=== PATIENT | female | born 2000 | race Hispanic/Latino ===

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

== ENCOUNTER 2021-08-14 17:52 | Emergency (ER) | payer OTHER ==
--- OUTSIDE RECORDS SUMMARY | 2021-08-14 17:56 | XMS REPORT | Continuity of Care Document ---
:2000 Author Organization [facility] t Address [address] [place] [address] Care Team Providers Name Role Phone Naomi Coleman Primary Care Physician [phone] Yohan BOLDEN N Attending Clinician Araceli Coleman Attending Clinician Payers Payer Name Policy Type Policy Number Effective Date Expiration Date S ource Problems Condition Condition Condition Status Onset Resolution Last Treating Co mments Source Name Details Category Date Date Treatment Clinician Date Anemia, Anemia, Disease Active 2020-07 Univers 0-03 it y of 00:00: [address] Branch Disease Active 2020-07 U nivers hemorrhage hemorrhage 0-02 it y of 00:00: [address] Branch Obstetrica Obstetrica Disease Active 2020-07 U nivers l l 0-02 ity [place] [address] [place] [address] Branch Rubella Rubella Disease Active Overview: Univ ers non-immune non-immune 3-01 Formattin ity of status, status, 00:00: g of this [place] antepartum antepartum 00 note Me dical might be Branch different from the original. Address pp BMI BMI Disease Active 2018-07 Univers 31.0-31.9, 31.0-31.9, 0-29 it y of adult adult 00:00: [address] Branch Allergies, Adverse Reactions, Alerts This patient has no known allergies or adverse reactions. Social History Social Habit Start Date Stop Date Quantity Comments Source History SDOH University o f Alcohol Comment [place] [facility] Branch History SDCO University o f Alcohol Std [place] [facility] Drinks Branch History [facility] University o f Alcohol Binge [place] [facility] al Branch Exposure to Not sure University of SARS-CoV-2 [place] [facility] (event) Branch Alcohol intake 2021-06-05 2021-06-05 Lifetime University of 00:00:00 00:00:00 non-drinker [facility] (finding) Branch Tobacco use and 2019-05-12 2019-05-12 Never used Universit y of exposure 00:00:00 00:00:00 [place] [facility] History SDOH 2019-05-12 2019-05-12 1 University o f Alcohol Frequency 00:00:00 00:00:00 [facility] edical Gatzke Sex Assigned At 2000 2001 Universit y of 00:00:00 00:00:00 [facility] Smoking Status Start Date Stop Date Source Never smoker [facility] Medications Ordered Filled Start Stop Current Ordering Indication Dosage Frequency Signature Comments Components Source Medication Medication Date Date Medication? Clinician (SIG) Name Name doxycycline 2020-07- Yes [id number] 100mg Take 1 Univers hyclate 100 08-06 capsule by i ty of mg capsule 00:00: 05:59 mouth 2 Pritesh as 00 :00 (two) Medical times Branch daily for 7 days. norelgestro 2020-07 Yes [id number] 1{patch Apply 1 Univers min-ethinyl 1-22 } Patch to ity of estradiol 00:00: [facility] ([facility] 00 weekly. Medical 150-35 Branch mcg/24 hr patch norelgestro 2020-07 Yes [id number] 1{patch Apply 1 Univers min-ethinyl 1-22 } Patch to ity of estradiol 00:00: skin [place] ([facility] 00 weekly. Medical 150-35 Branch mcg/24 hr patch norelgestro 2020-07 Yes [id number] 1{patch Apply 1 Univers min-ethinyl 1-22 } Patch to ity of estradiol 00:00: skin [place] [facility] 00 weekly. Medical 150-35 Branch mcg/24 hr patch norelgestro 2020-07 Yes [id number] 1{patch Apply 1 Univers min-ethinyl 1-22 } Patch to ity of estradiol 00:00: skin [place] ([facility] 00 weekly. Medical 150-35 Branch mcg/24 hr patch norelgestro 2020- Yes [id number] 1{patch Apply 1 Univers min-ethinyl 1-22 } Patch to ity of estradiol 00:00: skin [place] ([facility] 00 weekly. Medical 150-35 Branch mcg/24 hr patch norelgestro 2020- Yes [id number] 1{patch Apply 1 Univers min-ethinyl 1-22 } Patch to ity of estradiol 00:00: skin [place] ([facility] 00 weekly. Medical 150-35 Branch mcg/24 hr patch norelgestro 2020-07 Yes [id number] 1{patch Apply 1 Univers min-ethinyl 1-22 } Patch to ity of estradiol 00:00: skin [place] ([facility] 00 weekly. Medical 150-35 Branch mcg/24 hr patch Iron Fum & 2020-07 Yes [id number] 1{capsu Take 1 Univers P-FA-Vit B 0-03 le} capsule by ity of & C No.9 00:00: mouth [place] (INTEGRA 00 daily. Medical PLUS) 125 Branch mg iron- 1 mg Cap Iron Fum & 2020-07 Yes [id number] 1{capsu Take 1 Univers P-FA-Vit B 0-03 le} capsule by ity of & C No.9 00:00: mouth [place] (INTEGRA 00 daily. Medical PLUS) 125 Branch mg iron- 1 mg Cap Iron Fum & 2020-07 Yes [id number] 1{capsu Take 1 Univers P-FA-Vit B 0-03 le} capsule by ity of & C No.9 00:00: mouth [place] (INTEGRA 00 daily. Medical PLUS) 125 Branch mg iron- 1 mg Cap Iron Fum & 2020-07 Yes [id number] 1{capsu Take 1 Univers P-FA-Vit B 0-03 le} capsule by ity of & C No.9 00:00: mouth [place] (INTEGRA 00 daily. Medical PLUS) 125 Branch mg iron- 1 mg Cap Iron Fum & 2020-07 Yes [id number] 1{capsu Take 1 Univers P-FA-Vit B 0-03 le} capsule by ity of & C No.9 00:00: mouth [place] (INTEGRA 00 daily. Medical PLUS) 125 Branch mg iron- 1 mg Cap Iron Fum & 2020-07 Yes [id number] 1{capsu Take 1 Univers P-FA-Vit B 0-03 le} capsule by ity of & C No.9 00:00: mouth [place] (INTEGRA 00 daily. Medical PLUS) 125 Branch mg iron- 1 mg Cap Iron Fum & 2020-07 Yes [id number] 1{capsu Take 1 Univers P-FA-Vit B 0-03 le} capsule by ity of & C No.9 00:00: mouth [place] (INTEGRA daily. Medical PLUS) 125 Branch mg iron- 1 mg Cap ibuprofen 2020-07- No [id number] 600mg Take 1 Univers 600 mg 0-03 11-22 tablet by ity of tablet 00:00: 00:00 mouth [place] 00 :00 every 6 Medical (six) Branch hours as needed (Pain). Take with food or milk. PNV 67-iron Yes [id number] 1{each} Take 1 Univers ps-folate 5-21 Each by ity of no.1-dha 00:00: mouth [place] (VITAFOL 00 daily. Medical ULTRA) 29 Branch mg iron- 1 mg-200 mg Cap PNV 67-iron Yes [id number] 1{each} Take 1 Univers ps-folate 5-21 Each by ity of no.1-dha 00:00: mouth [place] (VITAFOL 00 daily. Medical ULTRA) 29 Branch mg iron- 1 mg-200 mg Cap PNV 67-iron 0 Yes [id number] 1{each} Take 1 Univers ps-folate 5-21 Each by ity of no.1-dha 00:00: mouth [place] (VITAFOL 00 daily. Medical ULTRA) 29 Branch mg iron- 1 mg-200 mg Cap PNV 67-iron 0 Yes [id number] 1{each} Take 1 Univers ps-folate 5-21 Each by ity of no.1-dha 00:00: mouth [place] (VITAFOL 00 daily. Medical ULTRA) 29 Branch mg iron- 1 mg-200 mg Cap PNV 67-iron 2020-0 Yes [id number] 1{each} Take 1 Univers ps-folate 5-21 Each by ity of no.1-dha 00:00: mouth [place] (VITAFOL 00 daily. Medical ULTRA) 29 Branch mg iron- 1 mg-200 mg Cap PNV 67-iron 2020-0 Yes [id number] 1{each} Take 1 Univers ps-folate 5-21 Each by ity of no.1-dha 00:00: mouth [place] (VITAFOL 00 daily. Medical ULTRA) 29 Branch mg iron- 1 mg-200 mg Cap PNV 67-iron 0 Yes [id number] 1{each} Take 1 Univers ps-folate 5-21 Each by ity of no.1-dha 00:00: mouth [place] (VITAFOL 00 daily. Medical ULTRA) 29 Branch mg iron- 1 mg-200 mg Cap Immunizations Ordered Immunization Filled Immunization Date Status Commen ts Source Name Name [facility] 2021-02-15 Completed University of 00:00:00 [facility] TDAP 2021-02-15 Completed University of 00:00:00 [facility] TDAP 2021-02-15 Completed University of 00:00:00 [facility] TDAP 2021-02-15 Completed University of 00:00:00 [facility] TDAP 2021-02-15 Completed University of 00:00:00 [facility] TDAP 2021-02-15 Completed University of 00:00:00 [facility] TDAP 2021-02-15 Completed University of 00:00:00 [facility] Influenza Virus 2019-05-12 Completed Universit y of Vaccine Quad .5 mL 00:00:00 [facility] 6+ MO Branch Influenza Virus 2019-05-12 Completed Universit y of Vaccine Quad .5 mL 00:00:00 [facility] IM 6+ MO Branch Influenza Virus 2019-05-12 Completed Universit y of Vaccine Quad .5 mL 00:00:00 [place] [facility] IM 6+ MO Branch Influenza Virus 2019-05-12 Completed Universit y of Vaccine Quad .5 mL 00:00:00 [place] [facility] IM 6+ MO Branch Influenza Virus 2019-05-12 Completed Universit y of Vaccine Quad .5 mL 00:00:00 [place] [facility] IM 6+ MO Branch Influenza Virus 2019-05-12 Completed Universit y of Vaccine Quad .5 mL 00:00:00 [place] [facility] IM 6+ MO Branch Influenza Virus 2019-05-12 Completed Universit y of Vaccine Quad .5 mL 00:00:00 [facility] 6+ MO Branch Meningococcal 2019-02-18 Completed University of Vaccine 00:00:00 [facility] Meningococcal 2019-02-18 Completed University of Vaccine 00:00:00 [facility] Meningococcal 2019-02-18 Completed University of Vaccine 00:00:00 [facility] Meningococcal 2019-02-18 Completed University of Vaccine 00:00:00 [facility] Meningococcal 2019-02-18 Completed University of Vaccine 00:00:00 [facility] Meningococcal 2019-02-18 Completed University of Vaccine 00:00:00 [facility] Meningococcal 2019-02-18 Completed University of Vaccine 00:00:00 [facility] Meningococcal 2018-01-06 Completed University of Vaccine 00:00:00 [facility] Meningococcal 2018-01-06 Completed University of Vaccine 00:00:00 [facility] Meningococcal 2018-01-06 Completed University of Vaccine 00:00:00 [facility] Meningococcal 2018-01-06 Completed University of Vaccine 00:00:00 [facility] Meningococcal 2018-01-06 Completed University of Vaccine 00:00:00 [facility] Meningococcal 2018-01-06 Completed University of Vaccine 00:00:00 [facility] Meningococcal 2018-01-06 Completed University of Vaccine 00:00:00 [facility] HPV 2014-10-28 Completed University of 00:00:00 [facility] HPV 2014-10-28 Completed University of 00:00:00 [facility] HPV 2014-10-28 Completed University of 00:00:00 [facility] Branch HPV 2014-10-28 Completed University of 00:00:00 [facility] Branch HPV 2014-10-28 Completed University of 00:00:00 [facility] Branch HPV 2014-10-28 Completed University of 00:00:00 [facility] Branch HPV 2014-10-28 Completed University of 00:00:00 [facility] HPV 2014-03-06 Completed University of 00:00:00 [facility] Branch HPV 2014-03-06 Completed University of 00:00:00 [facility] Branch HPV 2014-03-06 Completed University of 00:00:00 [facility] Branch HPV 2014-03-06 Completed University of 00:00:00 [facility] Branch HPV 2014-03-06 Completed University of 00:00:00 [facility] Branch HPV 2014-03-06 Completed University of 00:00:00 [facility] Branch HPV 2014-03-06 Completed University of 00:00:00 [facility] Varicella 2010-02-24 Completed University of (varivax)(chicken 00:00:00 [place] [facility] pox) Branch Varicella 2010-02-24 Completed University of (varivax)(chicken 00:00:00 [place] [facility] pox) Branch Varicella 2010-02-24 Completed University of (varivax)(chicken 00:00:00 [place] [facility] pox) Branch Varicella 2010-02-24 Completed University of (varivax)(chicken 00:00:00 [place] [facility] pox) Branch Varicella 2010-02-24 Completed University of (varivax)(chicken 00:00:00 [place] [facility] pox) Branch Varicella 2010-02-24 Completed University of (varivax)(chicken 00:00:00 [place] [facility] pox) Branch Varicella 2010-02-24 Completed University of (varivax)(chicken 00:00:00 [place] [facility] pox) Branch HEPATITIS A 2006-11-06 Completed University of 00:00:00 [facility] HEPATITIS A 2006-11-06 Completed University of 00:00:00 [facility] HEPATITIS A 2006-11-06 Completed University of 00:00:00 [facility] HEPATITIS A 2006-11-06 Completed University of 00:00:00 [facility] HEPATITIS A 2006-11-06 Completed University of 00:00:00 [facility] HEPATITIS A 2006-11-06 Completed University of 00:00:00 [facility] HEPATITIS A 2006-11-06 Completed University of 00:00:00 [facility] HEPATITIS A 2006-03-13 Completed University of 00:00:00 [facility] HEPATITIS A 2006-03-13 Completed University of 00:00:00 [facility] HEPATITIS A 2006-03-13 Completed University of 00:00:00 [facility] HEPATITIS A 2006-03-13 Completed University of 00:00:00 [facility] HEPATITIS A 2006-03-13 Completed University of 00:00:00 [facility] HEPATITIS A 2006-03-13 Completed University of 00:00:00 [facility] HEPATITIS A 2006-03-13 Completed University of 00:00:00 [facility] DTAP 2006-01-18 Completed University of 00:00:00 [facility] MMR 2006-01-18 Completed University of 00:00:00 [facility] Polio (IPV/OPV) 2006-01-18 Completed Universit y of 00:00:00 [facility] Pneumococcal 7 2006-01-18 Completed University of Conjugate, PCV7 00:00:00 [place] [facility] (Prevnar7) Branch DTAP 2006-01-18 Completed University of 00:00:00 [facility] MMR 2006-01-18 Completed University of 00:00:00 [facility] Polio (IPV/OPV) 2006-01-18 Completed Universit y of 00:00:00 [facility] Pneumococcal 7 2006-01-18 Completed University of Conjugate, PCV7 00:00:00 [place] [facility] ical (Prevnar7) Branch DTAP 2006-01-18 Completed University of 00:00:00 [facility] MMR 2006-01-18 Completed University of 00:00:00 [facility] Polio (IPV/OPV) 2006-01-18 Completed Universit y of 00:00:00 [facility] Pneumococcal 7 2006-01-18 Completed University of Conjugate, PCV7 00:00:00 [place] [facility] ical (Prevnar7) Branch DTAP 2006-01-18 Completed University of 00:00:00 [facility] MMR 2006-01-18 Completed University of 00:00:00 [facility] Polio (IPV/OPV) 2006-01-18 Completed Universit y of 00:00:00 [facility] Pneumococcal 7 2006-01-18 Completed University of Conjugate, PCV7 00:00:00 [place] [facility] ical (Prevnar7) Branch DTAP 2006-01-18 Completed University of 00:00:00 [facility] MMR 2006-01-18 Completed University of 00:00:00 [facility] Polio (IPV/OPV) 2006-01-18 Completed Universit y of 00:00:00 [facility] Pneumococcal 7 2006-01-18 Completed University of Conjugate, PCV7 00:00:00 [place] [facility] ical (Prevnar7) Branch DTAP 2006-01-18 Completed University of 00:00:00 [facility] MMR 2006-01-18 Completed University of 00:00:00 [facility] Polio (IPV/OPV) 2006-01-18 Completed Universit y of 00:00:00 [facility] Pneumococcal 7 2006-01-18 Completed University of Conjugate, PCV7 00:00:00 [place] [facility] ical (Prevnar7) Branch DTAP 2006-01-18 Completed University of 00:00:00 [facility] MMR 2006-01-18 Completed University of 00:00:00 [facility] Polio (IPV/OPV) 2006-01-18 Completed Universit y of 00:00:00 [facility] Branch Pneumococcal 7 2006-01-18 Completed University of Conjugate, PCV7 00:00:00 [place] [facility] (Prevnar7) Branch Varicella 2003-05-27 Completed University of (varivax)(chicken 00:00:00 [place] [facility] pox) Branch Pneumococcal 7 2003-05-27 Completed University of Conjugate, PCV7 00:00:00 [place] [facility] (Prevnar7) Branch Varicella 2003-05-27 Completed University of (varivax)(chicken 00:00:00 [place] [facility] pox) Branch Pneumococcal 7 2003-05-27 Completed University of Conjugate, PCV7 00:00:00 [place] [facility] (Prevnar7) Branch Varicella 2003-05-27 Completed University of (varivax)(chicken 00:00:00 [place] [facility] pox) Branch Pneumococcal 7 2003-05-27 Completed University of Conjugate, PCV7 00:00:00 [place] [facility] (Prevnar7) Branch Varicella 2003-05-27 Completed University of (varivax)(chicken 00:00:00 [place] [facility] pox) Branch Pneumococcal 7 2003-05-27 Completed University of Conjugate, PCV7 00:00:00 [place] [facility] (Prevnar7) Branch Varicella 2003-05-27 Completed University of (varivax)(chicken 00:00:00 [place] [facility] pox) Branch Pneumococcal 7 2003-05-27 Completed University of Conjugate, PCV7 00:00:00 [place] [facility] (Prevnar7) Branch Varicella 2003-05-27 Completed University of (varivax)(chicken 00:00:00 [place] [facility] pox) Branch Pneumococcal 7 2003-05-27 Completed University of Conjugate, PCV7 00:00:00 [place] [facility] (Prevnar7) Branch Varicella 2003-05-27 Completed University of (varivax)(chicken 00:00:00 [place] [facility] pox) Branch Pneumococcal 7 2003-05-27 Completed University of Conjugate, PCV7 00:00:00 [place] [facility] (Prevnar7) Branch DTAP 2002-12-25 Completed University of 00:00:00 [facility] HIB 3 Dose Schedule 2002-12-25 Completed Unive rsity of 00:00:00 [facility] MMR 2002-12-25 Completed University of 00:00:00 [facility] Pneumococcal 7 2002-12-25 Completed University of Conjugate, PCV7 00:00:00 [place] [facility] (Prevnar7) Branch DTAP 2002-12-25 Completed University of 00:00:00 [facility] HIB 3 Dose Schedule 2002-12-25 Completed Unive rsity of 00:00:00 [facility] MMR 2002-12-25 Completed University of 00:00:00 [facility] Pneumococcal 7 2002-12-25 Completed University of Conjugate, PCV7 00:00:00 [place] [facility] (Prevnar7) Branch DTAP 2002-12-25 Completed University of 00:00:00 [facility] HIB 3 Dose Schedule 2002-12-25 Completed Unive rsity of 00:00:00 [facility] MMR 2002-12-25 Completed University of 00:00:00 [facility] Pneumococcal 7 2002-12-25 Completed University of Conjugate, PCV7 00:00:00 [place] [facility] (Prevnar7) Branch DTAP 2002-12-25 Completed University of 00:00:00 [facility] HIB 3 Dose Schedule 2002-12-25 Completed Unive rsity of 00:00:00 [facility] MMR 2002-12-25 Completed University of 00:00:00 [facility] Pneumococcal 7 2002-12-25 Completed University of Conjugate, PCV7 00:00:00 [place] [facility] ical (Prevnar7) Branch DTAP 2002-12-25 Completed University of 00:00:00 [facility] HIB 3 Dose Schedule 2002-12-25 Completed Unive rsity of 00:00:00 [facility] MMR 2002-12-25 Completed University of 00:00:00 [facility] Pneumococcal 7 2002-12-25 Completed University of Conjugate, PCV7 00:00:00 [place] [facility] (Prevnar7) Branch DTAP 2002-12-25 Completed University of 00:00:00 [facility] HIB 3 Dose Schedule 2002-12-25 Completed Unive rsity of 00:00:00 [facility] MMR 2002-12-25 Completed University of 00:00:00 [facility] Pneumococcal 7 2002-12-25 Completed University of Conjugate, PCV7 00:00:00 [place] [facility] (Prevnar7) Branch DTAP 2002-12-25 Completed University of 00:00:00 [facility] HIB 3 Dose Schedule 2002-12-25 Completed Unive rsity of 00:00:00 [facility] MMR 2002-12-25 Completed University of 00:00:00 [facility] Pneumococcal 7 2002-12-25 Completed University of Conjugate, PCV7 00:00:00 [facility] ical (Prevnar7) Branch Hep B, Adol or Pedi 2001 Completed Unive rsity of Dosage 00:00:00 [facility] Branch Hep B, Adol or Pedi 2001 Completed Unive rsity of Dosage 00:00:00 [facility] Hep B, Adol or Pedi 2001 Completed Unive rsity of Dosage 00:00:00 [facility] Hep B, Adol or Pedi 2001 Completed Unive rsity of Dosage 00:00:00 [facility] Hep B, Adol or Pedi 2001 Completed Unive rsity of Dosage 00:00:00 [facility] Hep B, Adol or Pedi 2001 Completed Unive rsity of Dosage 00:00:00 [facility] Hep B, Adol or Pedi 2001 Completed Unive rsity of Dosage 00:00:00 [facility] Vital Signs Vital Name Observation Time Observation Value Comments Source Systolic blood 2021-06-05 19:11:00 122 mm[Hg] Univer sity of pressure [facility] Diastolic blood 2021-06-05 19:11:00 72 mm[Hg] Unive rsity of pressure [facility] Heart rate 2021-06-05 19:11:00 102 /min [facility] Body temperature 2021-06-05 19:11:00 36.67 Amy [facility] Respiratory rate 2021-06-05 19:11:00 16 /min Univ [facility] Body height 2021-06-05 19:11:00 157.5 cm [facility] Body weight 2021-06-05 19:11:00 87.998 kg [facility] BMI 2021-06-05 19:11:00 35.48 kg/m2 [facility] Body mass index 2021-06-05 19:11:00 97.41 % Unive rsity of (BMI) [Percentile] [place] [facility] ical Per age and sex Branch Procedures Procedure Date / Time Performed Performing Clinician Sour e POCT TEST 2021-06-05 19:45:00 Doris Almanzar [facility] Encounters Start End Encounter Admission Attending Care Care Encounter Source Date/Time Date/Time Type Type Clinicians Facility Department ID 2021-07-24 2021-07-24 NELLY Vilchis [id number] Univers 00:00:00 00:00:00 Doris Jain SBA BUSINESS DEVELOPMENT OFFICER [id number] it y of REGIONAL [id number] Pritesh as MATERNAL [id number] Med ical & CHILD 107 [facility] 2021-07-12 2021-07-12 NELLY Vilchis [id number] Univers 00:00:00 00:00:00 Doris Jain SBA BUSINESS DEVELOPMENT OFFICER [id number] it y of REGIONAL [id number] Pritesh as MATERNAL [phone] Med ical & CHILD 107 [facility] 2021-07-10 2021-07-10 NELLY Vilchis [id number] Univers 00:00:00 00:00:00 Doris Jain SBA BUSINESS DEVELOPMENT OFFICER [id number] it y of REGIONAL [id number] Pritesh as MATERNAL [id number] Med ical & CHILD 107 [facility] 2021-07-05 2021-07-05 NELLY Vilchis [id number] Univers 00:00:00 00:00:00 Doris Jain SBA BUSINESS DEVELOPMENT OFFICER [id number] it y of REGIONAL [id number] Pritesh as MATERNAL [id number] Med ical & CHILD 107 [facility] 2021-07-02 2021-07-02 NELLY Vilchis [id number] Univers 00:00:00 00:00:00 Doris Jain SBA BUSINESS DEVELOPMENT OFFICER [id number] it y of REGIONAL [id number] Pritesh as MATERNAL [id number] Med ical & CHILD [address] [place] [address] 2021-06-06 2021-06-06 Telephone Yohan [facility] [id number] Univers 00:00:00 00:00:00 Doris N SBA BUSINESS DEVELOPMENT OFFICER [id number] it y of REGIONAL [id number] Pritesh as MATERNAL [id number] [facility] ical & CHILD [address] [place] [address] 2021-06-05 2021-06-05 [facility] [id number] Univers 12:57:22 13:50:02 Visit Doris Jain SBA BUSINESS DEVELOPMENT OFFICER [id number] it y of REGIONAL [id number] Pritesh as MATERNAL [phone] [facility] ical & CHILD [address] [place] [address] 2020-12-02 2020-12-02 Routine [facility], [facility] [id number] 08:05:58 10:34:28 Naomi C SBA BUSINESS DEVELOPMENT OFFICER [id number] Visit REGIONAL [id number] MATERNAL [id number] & CHILD [address] [place] [address] 2020-11-12 2020-11-12 Refill [facility] [id number] 00:00:00 00:00:00 Naomi C SBA BUSINESS DEVELOPMENT OFFICER [id number] REGIONAL [id number] MATERNAL [id number] & CHILD [address] [place] [address] 2020-11-10 2020-11-10 Refill [place] [id number] 00:00:00 00:00:00 Naomi C SBA BUSINESS DEVELOPMENT OFFICER [id number] REGIONAL [id number] MATERNAL [id number] & CHILD [address] [place] [address] 2020-11-04 2020-11-04 Routine [facility] [id number] 10:53:45 11:52:04 Naomi C SBA BUSINESS DEVELOPMENT OFFICER [id number] Visit REGIONAL [id number] MATERNAL [phone] & CHILD [address] [place] [address] Results Test Description Test Time Test Comments Results Result Comments Source POCT TEST 2021-06-05 19:45:00 Test Item Value Reference Range Interpretation Comme nts POCT PREG (test code = 1605) Negative On board controls acceptable with C Line (test code = 3574) Yes POCT PREG LOT # (test code = 3575) POCT PREG TEST DATE (test code = 3576) [facility]
[2021-08-14] MEDS ORDERED: MORPHINE 4 MG/ML SYR ONE (18:34)
[2021-08-14] MEDS ORDERED: ONDANSETRON 4 MG/2 ML VIAL ONE (18:34)
[2021-08-14] MEDS ORDERED: LIDOCAINE 1% W/EPI 1:100,000 MDV 20 ML VIAL ONE (18:35)
[2021-08-14] MEDS ORDERED: BUPIVACAINE 0.5% PF 10 ML VIAL ONE (18:35)
[2021-08-14 19:06] LABS: Absolute Lymphocytes (CBC) 1.9 K/uL (0.7-4.9); Hematocrit 37.6 % (36.0-45.0); Lymphocytes % 15.7 % (15.3-44.8); MPV 7.9 fL (7.6-11.3); RBC Red Blood Cell Count 5.06 M/uL (3.86-4.86)
[2021-08-14 19:18] LABS: ALT/SGPT 22 U/L (12-78); AST/SGOT 11 U/L (15-37); Albumin 3.4 g/dL (3.4-5.0); Alkaline Phosphatase 78 U/L (45-117); BUN Blood Urea Nitrogen 11 mg/dL (7-18); Bicarbonate 23 mmol/L (21-32); Bilirubin Direct < 0.1 mg/dL (0-0.2); Bilirubin Total 0.2 mg/dL (0.2-1.0); Glucose Level 103 mg/dL (74-106); Potassium 3.9 mmol/L (3.5-5.1); Protein, Total 8.6 g/dL (6.4-8.2); Sodium Level 135 mmol/L (136-145)
[2021-08-14] MEDS ORDERED: CLINDAMYCIN 900MG/D5W 900 MG/50 ML IVPB IV ONE (20:14)
[2021-08-14] MEDS ORDERED: NA CHLORIDE 0.9% 1,000 ML ONE (20:14)
--- NOTE | 2021-08-14 20:30 | ER ---
Nurse's Notes [facility] Name: Jessie Mejia Age: 20 yrs Sex: Female : 2000 Arrival Date: 08/14/2021 Time: 17:55 Bed 25 Private MD: Diagnosis: Pilonidal cyst with abscess Presentation: 08/14 18:01 Chief complaint: Patient states: boil to [facility], seen pcp and they told her to come [facility] to er for eval. no drainage or fever. Coronavirus screen: Vaccine status: Patient reports being unvaccinated. Ebola Screen: Patient denies travel to an Ebola-affected area in the 21 days before illness onset. Initial Sepsis Screen: Does the patient meet any 2 criteria? No. Patient's initial sepsis screen is negative. Does the patient have a suspected source of infection? No. Patient's initial sepsis screen is negative. Risk Assessment: Do you want to hurt yourself or someone else? Patient reports no desire to harm self or others. Onset of symptoms was August 11, 2021. 18:01 Method Of Arrival: Ambulatory [facility] 18:01 Acuity: CONNIE 4 [facility] Triage Assessment: 18:06 General: Appears in no apparent distress. comfortable, well groomed, well developed, [facility] Behavior is calm, cooperative, Reports fatigue for 0-12 hours. Pain: Complains of pain in coccyx and gluteal cleft. 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 - Social history:: Smoking status: Patient denies any tobacco usage or history of. Screenin:21 Abuse screen: Denies threats or abuse. Denies injuries from another. Nutritional ab2 screening: No deficits noted. Tuberculosis screening: No symptoms or risk factors identified. Fall Risk None identified. Assessment: 18:19 General: Appears in no apparent distress. comfortable, Behavior is calm, cooperative, ab2 appropriate for age. Pain: Denies pain. Neuro: Level of Consciousness is awake, alert, obeys commands, Oriented to person, place, time, situation, Appropriate for age Home Worker are equal bilaterally Moves all extremities. Gait is steady, Speech is normal. Cardiovascular: No deficits noted. Denies chest pain, shortness of breath, Heart tones S1 S2 present Patient's skin is warm and dry. Chest pain is denied. Respiratory: No deficits noted. Airway is patent Breath sounds are clear bilaterally. Denies cough, shortness of breath. GI: No deficits noted. No signs and/or symptoms were reported involving the gastrointestinal system. : No deficits noted. No signs and/or symptoms were reported regarding the genitourinary system. EENT: No deficits noted. No signs and/or symptoms were reported regarding the EENT system. Derm: Pt has cyst like formation on her tailbone. 20:21 Reassessment: Patient appears in no apparent distress at this time. I\T\D completed. Pt ab2 tolerated well. Boyfriend remains at bedside. Vital Signs: 18:01 BP 145 / 79; Pulse 122; Resp 18; Temp 97.8; Weight 89.36 kg; Height 5 ft. 2 in. (157.48 jh6 cm); Pain 7/10; 19:12 BP 126 / 48; Pulse 115; Resp 16; Pulse Ox 99% on R/A; ab2 20:24 BP 111 / 80; Pulse 109; Resp 18; Pulse Ox 100% on R/A; ab2 20:36 BP 119 / 65; Pulse 81; Resp 18; Pulse Ox 100% on R/A; Pain 0/10; [place] 18:01 Body Mass Index 36.03 (89.36 kg, 157.48 cm) jh6 Paolo Coma Score: 20:24 Eye Response: spontaneous(4). Verbal Response: oriented(5). Motor Response: obeys ab2 commands(6). Total: 15. ED Course: 17:55 Patient arrived in ED. as 18:05 Triage completed. jh6 18:08 Darion Rodgers is Primary Nurse. ab2 18:10 Parish Can PA is PHCP. cp 18:10 Trevor Grimm MD is Attending Physician. cp 18:21 Arm band placed on right wrist. ab2 18:21 Patient has correct armband on for positive identification. Side rails up X2. Adult w/ ab2 patient. 18:53 Basic Metabolic Panel Sent. ab2 18:53 CBC with Diff Sent. ab2 18:53 Hepatic Function Sent. ab2 18:53 Inserted saline lock: 20 gauge in right antecubital area, using aseptic technique. ab2 Blood collected. 20:29 Elijah Monahan MD is Referral Physician. cp 20:30 Parish Bell MD is Attending Physician. cp 20:36 Warm blanket given. Pillow given. t[place] 20:36 Assist provider with I \T\ D: of an abscess on pilonidal cyst The pt tolerated the [place]enn[place] procedure well and abx is infusing. Awaiting dispo. 21:17 intact, bleeding controlled, No redness/swelling at site. Pressure dressing applied. tennille Administered Medications: 18:52 Drug: Zofran (Ondansetron) 4 mg Route: IVP; Site: right antecubital; ab2 20:17 Follow up: Response: No adverse reaction ab2 20:58 Follow up: Response: No adverse reaction [place] 18:53 Drug: morphine 4 mg Route: IVP; Site: right antecubital; ab2 20:17 Follow up: Response: No adverse reaction ab2 20:58 Follow up: Response: No adverse reaction [place] 20:15 Drug: NS 0.9% 1000 ml Route: IV; Rate: 1 bolus; Site: right antecubital; ab2 20:58 Follow up: IV Status: Completed infusion; IV Intake: 1000ml [place] 20:15 Drug: Clindamycin 900 mg Route: IVPB; Infused Over: 30 mins; Site: right antecubital; ab2 20:58 Follow up: IV Status: Completed infusion; IV Intake: 100ml [place] 20:17 Drug: Marcaine (bupivacaine) (0.5 %) 10 ml {Note: given by [facility] ARREOLA during I\T\D.} ab2 Volume: 10 ml; Route: Infiltration; 20:19 Follow up: Response: No adverse reaction ab2 21:15 Follow up: Response: No adverse reaction [place] 21:15 Follow up: Response: No adverse reaction [place] 20:18 Drug: Lidocaine-Epinephrine -1%: (1:100,000) 10 ml {Note: Given by MAXWELL John .} ab2 Volume: 20 ml; Route: Infiltration; 20:19 Follow up: Response: No adverse reaction ab2 Intake: 20:58 IV: 1000ml; Total: 1000ml. tennille 20:58 IV: 100ml; Total: 1100ml. tennille Outcome: 20:29 Discharge ordered by . cp 20:38 Condition: stable [place] 21:16 Discharged to home ambulatory. [place] 21:16 Discharge instructions given to patient, Instructed on discharge instructions, follow up and referral plans. medication usage, Demonstrated understanding of instructions, follow-up care, medications, wound care, Prescriptions given X 4. 21:17 Patient left the ED. [place] Signatures: Shaila Iverson Corey, Jessica Chase cp RN RN jh6 Tyra Tate RN RN t[place] Darion Rodgers2
--- NOTE | 2021-08-14 20:31 | EDPHYS ---
Physician Documentation [facility] Name: Jessie Mejia Age: 20 yrs Sex: Female : 2000 Arrival Date: 08/14/2021 Time: 17:55 Bed 25 Private MD: ED Physician Parish Bell HPI: 08/14 18:30 This 20 yrs old Female presents to ER via Ambulatory with complaints of Boil. cp 18:30 The patient presents with an abscess of the coccyx. Description: fluctuant, painful. cp 18:30 Onset: The symptoms/episode began/occurred 3 day(s) ago. Associated signs and symptoms: cp Pertinent negatives: discharge, drainage, fever, shortness of breath. Modifying factors: the symptoms are aggravated by sitting. 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 - Social history:: Smoking status: Patient denies any tobacco usage or history of. ROS: 18:35 Skin: Positive for of the coccyx. cp 18:35 Eyes: Negative for injury, pain, redness, and discharge. cp 18:35 Constitutional: Negative for body aches, chills, fever. 18:35 Cardiovascular: Negative for chest pain. 18:35 Respiratory: Negative for cough, shortness of breath, wheezing. 18:35 Abdomen/GI: Negative for abdominal pain, nausea, vomiting, and diarrhea. 18:35 Neuro: Negative for altered mental status, weakness. 18:35 All other systems are negative. Exam: 18:40 Constitutional: The patient appears in no acute distress, alert, awake, well developed, cp well nourished, uncomfortable, overweight 18:40 Head/Face: Normocephalic, atraumatic. cp 18:40 Cardiovascular: Rate: tachycardic. 18:40 Respiratory: the patient does not display signs of respiratory distress, Respirations: normal, no use of accessory muscles, no retractions, labored breathing, is not present. 18:40 Abdomen/GI: Exam negative for discomfort, distension, guarding, Inspection: abdomen appears normal. 18:40 Skin: abscess, that is moderate sized, of the coccyx, with fluctuance, that is mild. 18:40 Neuro: Orientation: to person, place \T\ time. Mentation: is normal. Vital Signs: 18:01 BP 145 / 79; Pulse 122; Resp 18; Temp 97.8; Weight 89.36 kg; Height 5 ft. 2 in. (157.48 jh6 cm); Pain 7/10; 19:12 BP 126 / 48; Pulse 115; Resp 16; Pulse Ox 99% on R/A; ab2 20:24 BP 111 / 80; Pulse 109; Resp 18; Pulse Ox 100% on R/A; ab2 20:36 BP 119 / 65; Pulse 81; Resp 18; Pulse Ox 100% on R/A; Pain 0/10; [place] 18:01 Body Mass Index 36.03 (89.36 kg, 157.48 cm) jh6 Paolo Coma Score: 20:24 Eye Response: spontaneous(4). Verbal Response: oriented(5). Motor Response: obeys ab2 commands(6). Total: 15. Procedures: 20:08 I \T\ D: Incision and drainage was performed for an abscess of the pilonidal cyst Prepped cp with Betadine, Anesthetized with 7 ccs mixture of 1% lidocaine with epi and 0.5% marcaine. Incised with #11 blade. Drained moderate amount purulent fluid. Packed with iodoform gauze, Dressing: sterile 4x4 gauze, the patient tolerated the procedure well. MDM: 18:10 Patient medically screened. cp 19:00 Differential diagnosis: abscess, cellulitis. cp 20:28 Data reviewed: vital signs, nurses notes, lab test result(s). cp 20:28 Counseling: I had a detailed discussion with the patient and/or guardian regarding: the historical points, exam findings, and any diagnostic results supporting the discharge/admit diagnosis, lab results, to return to the emergency department if symptoms worsen or persist or if there are any questions or concerns that arise at home. Response to treatment: the patient's symptoms have markedly improved after treatment, and as a result, I will discharge patient. 08/14 18:25 Order name: Basic Metabolic Panel; Complete Time: 19:38 08/14 18:25 Order name: CBC with Diff; Complete Time: 19:38 cp 08/14 19:38 Interpretation: Normal except: WBC 11.90; RBC 5.06; MCV 74.3; MCH 23.8; RDW 17.7; LUCINA% cp 74.5; NEUT A 8.9. 08/14 18:25 Order name: Hepatic Function; Complete Time: 19:38 cp 08/14 20:57 Order name: Urine Dipstick-Ancillary EDMS 08/14 20:58 Order name: Urine --Ancillary (enter results) mw2 08/14 18:25 Order name: I\T\D Setup; Complete Time: 18:34 cp 08/14 18:25 Order name: IV Saline Lock; Complete Time: 18:53 cp 08/14 18:25 Order name: Labs collected and sent; Complete Time: 18:53 cp 08/14 18:25 Order name: Urine Dipstick-Ancillary (obtain specimen); Complete Time: 20:57 cp 08/14 18:25 Order name: Urine Test (obtain specimen); Complete Time: 20:57 cp Administered Medications: 18:52 Drug: Zofran (Ondansetron) 4 mg Route: IVP; Site: right antecubital; ab2 20:17 Follow up: Response: No adverse reaction ab2 20:58 Follow up: Response: No adverse reaction [place] 18:53 Drug: morphine 4 mg Route: IVP; Site: right antecubital; ab2 20:17 Follow up: Response: No adverse reaction ab2 20:58 Follow up: Response: No adverse reaction [place] 20:15 Drug: NS 0.9% 1000 ml Route: IV; Rate: 1 bolus; Site: right antecubital; ab2 20:58 Follow up: IV Status: Completed infusion; IV Intake: 1000ml [place] 20:15 Drug: Clindamycin 900 mg Route: IVPB; Infused Over: 30 mins; Site: right antecubital; ab2 20:58 Follow up: IV Status: Completed infusion; IV Intake: 100ml [place] 20:17 Drug: Marcaine (bupivacaine) (0.5 %) 10 ml {Note: given by [facility] AR[facility] during I\T\D.} ab2 Volume: 10 ml; Route: Infiltration; 20:19 Follow up: Response: No adverse reaction ab2 21:15 Follow up: Response: No adverse reaction [place] 21:15 Follow up: Response: No adverse reaction [place] 20:18 Drug: Lidocaine-Epinephrine -1%: (1:100,000) 10 ml {Note: Given by MAXWELL John} ab2 Volume: 20 ml; Route: Infiltration; 20:19 Follow up: Response: No adverse reaction ab2 Disposition: 08/15 15:13 Co-signature as Attending Physician, Parish Bell MD I agree with the assessment and [facility] plan of care. Disposition Summary: 08/14/21 20:29 Discharge Ordered Location: Home cp Problem: new cp Symptoms: have improved cp Condition: Stable cp Diagnosis - Pilonidal cyst with abscess cp Followup: cp - With: Elijah Monahan MD - When: 1 - 2 days - Reason: Worsening of condition Discharge Instructions: - Discharge Summary Sheet cp - Incision and Drainage cp - Pilonidal Cyst cp Forms: - Medication Reconciliation Form cp - Thank You Letter cp - Antibiotic Education cp - Prescription Opioid Use cp Prescriptions: - Clindamycin HCl 300 mg Oral Capsule - take 1 capsule by ORAL route every 6 hours for 10 days; 40 capsule; Refills: 0, cp Product Selection Permitted - Bactrim DS 800-160 mg Oral Tablet - take 1 tablet by ORAL route every 12 hours for 10 days; 20 tablet; Refills: 0, cp Product Selection Permitted - Ibuprofen 800 mg Oral Tablet - take 1 tablet by ORAL route every 8 hours As needed take with food; 30 tablet; cp Refills: 0, Product Selection Permitted - Tylenol-Codeine #3 300 mg-30 mg Oral - take 2 tablet by ORAL route every 8-10 hours As needed; 16 tablet; Refills: 0, cp Product Selection Permitted Signatures: Dispatcher [employer] Parish Tabares MD MD cha Page, Corey, PA PA cp Hastedt, Jennifer RN RN jh6 Tyra Tate RN Darion Dorsey ab2
[2021-08-14 20:57] LABS: Urine Blood Trace-intact (Negative); Urine Glucose Negative (Negative); Urine Protein Negative (Negative); Urine Specific Gravity >=1.030 (1.005-1.030)
[2021-08-14 21:11] LABS: Urine Specific Gravity/Preg >1.030 (1.005-1.030)
[2021-08-14 21:27] VITALS: TEMP 97.8
[2021-08-14 21:36] VITALS: O2SAT 100
[2021-08-14 21:41] VITALS: BP 119/65
== END 2021-08-14 21:17 | disposition home or self-care (01) ==
LOC: ER 17:52
DX: L05.01 Pilonidal cyst with abscess (principal)
CPT/HCPCS: 96365; 85025; 80048; 36415; 81025; 80076; 81003; 96375; 99284; J7030; J2405

== ENCOUNTER 2022-02-18 23:08 | Emergency (ER) | payer OTHER ==
--- OUTSIDE RECORDS SUMMARY | 2022-02-18 23:11 | XMS REPORT | Continuity of Care Document ---
:2000 Author Organization [facility] t Address [address] [place] [address] Care Team Providers Name Role Phone ROSALIE CONTRERAS Primary Care Physician Unavailable ROSALIE CONTRERAS Attending Clinician Unavailable Rosalie Coleman Attending Clinician [phone] Payers Payer Name Policy Type Policy Number Effective Date Expiration Date [facility] [id number] 2019 [facility] MEDICAID 00:00:00 Problems Condition Condition Condition Status Onset Resolution Last Treating Co mments Source Name Details Category Date Date Treatment Clinician Date Anemia, Anemia, Disease Active 2020-07 Univers 0-03 it y of 00:00: [place] [address] Medical Branch Disease Active 2020-07 U nivers hemorrhage hemorrhage 0-02 it y of 00:00: [address] Branch Obstetrica Obstetrica Disease Active 2020-07 U nivers l l 0-02 ity of [place] [facility] Rubella Rubella Disease Active Overview: Univ ers non-immune non-immune 3-01 Formattin ity of status, status, 00:00: g of this [place] antepartum antepartum 00 note Me dical might be Branch different from the original. Address pp BMI BMI Disease Active 2018-07 Univers 31.0-31.9, 31.0-31.9, 0-29 it y of adult adult 00:00: [place] 00 Medical Branch Allergies, Adverse Reactions, Alerts Allergy Allergy Status Severity Reaction(s) Onset Inactive Treating Comm ents Source Name Type Date Date Clinician NO KNOWN Drug Active Univers ALLERGIE Class ity of S [place] [facility] [place] Social History Social Habit Start Date Stop Date Quantity Comments Source History SDOH University o f Alcohol Comment [place] [facility] ical [facility] History SDOH University o f Alcohol Std [place] Medical Drinks Branch History SDOH University o f Alcohol Binge [place] [facility] al Branch Exposure to Not sure [place] of SARS-CoV-2 [facility] (event) Branch Alcohol intake 2021-09-05 2021-09-05 Lifetime University of 00:00:00 00:00:00 non-drinker [facility] (finding) [place] Tobacco use and 2019-05-12 2019-05-12 Never used Universit y of exposure 00:00:00 00:00:00 [place] [facility] History SDOH 2019-05-12 2019-05-12 1 University o f Alcohol Frequency 00:00:00 00:00:00 [facility] edical [place] Sex Assigned At [birth year] Universit y of 00:00:00 00:00:00 [facility] Smoking Status Start Date Stop Date Source Never smoker [facility] Medications Ordered Filled Start Stop Current Ordering Indication Dosage Frequency Signature Comments Components Source Medication Medication Date Date Medication? Clinician (SIG) Name Name damon 2021- No [id number] 1000mg Take 2 Univers n 500 mg 2-25 - tablets by ity of tablet 00:00: 05:59 [place] now for 1 Medical dose. Branch norelgestro 2020-07 Yes [id number] 1{patch Apply 1 Univers min-ethinyl 1-22 } Patch to ity of estradiol 00:00: skin [place] (XULANE) 00 weekly. Medical 150-35 Branch mcg/24 hr patch norelgestro 2020-07 Yes [id number] 1{patch Apply 1 Univers min-ethinyl 1-22 } Patch to ity of estradiol 00:00: skin [place] (XULANE) 00 weekly. Medical 150-35 Branch mcg/24 hr patch Iron Fum & 2020-07 Yes [id number] 1{capsu Take 1 Univers P-FA-Vit B 0-03 le} capsule by ity of & C No.9 00:00: mouth [place] (INTEGRA 00 daily. Medical PLUS) 125 Branch mg iron- 1 mg Cap Iron Fum & 2020-07 Yes [id number] 1{capsu Take 1 Univers P-FA-Vit B 0-03 le} capsule by ity of & C No.9 00:00: mouth [place] (INTEGRA 00 daily. Medical PLUS) 125 Branch mg iron- 1 mg Cap PNV 67-iron Yes [id number] 1{each} Take 1 Univers ps-folate 5-21 Each by ity of no.1-dha 00:00: mouth [place] (VITAFOL 00 daily. Medical ULTRA) 29 Branch mg iron- 1 mg-200 mg Cap PNV 67-iron Yes [id number] 1{each} Take 1 Univers ps-folate 5-21 Each by ity of no.1-dha 00:00: mouth [place] (VITAFOL 00 daily. Medical ULTRA) 29 Branch mg iron- 1 mg-200 mg Cap Immunizations Ordered Immunization Filled Immunization Date Status Commen ts Source Name Name [facility] 2021-02-15 Completed University of 00:00:00 [facility] TDAP 2021-02-15 Completed University of 00:00:00 [facility] Influenza Virus 2019-05-12 Completed Universit y of Vaccine Quad .5 mL 00:00:00 [facility] IM 6+ [place] Influenza Virus 2019-05-12 Completed Universit y of Vaccine Quad .5 mL 00:00:00 [facility] [place] [facility] 6+ [place] Meningococcal 2019-02-18 Completed University of Vaccine 00:00:00 [facility] Meningococcal 2019-02-18 Completed University of Vaccine 00:00:00 [facility] Meningococcal 2018-01-06 Completed University of Vaccine 00:00:00 [facility] Meningococcal 2018-01-06 Completed University of Vaccine 00:00:00 [facility] HPV 2014-10-28 Completed University of 00:00:00 [facility] HPV 2014-10-28 Completed University of 00:00:00 [facility] HPV 2014-03-06 Completed University of 00:00:00 [facility] HPV 2014-03-06 Completed University of 00:00:00 [facility] Varicella 2010-02-24 Completed University of (varivax)(chicken 00:00:00 [place] M edical pox) Branch Varicella 2010-02-24 Completed University of (varivax)(chicken 00:00:00 [facility] edical pox) Branch HEPATITIS A 2006-11-06 Completed University of 00:00:00 [facility] HEPATITIS A 2006-11-06 Completed University of 00:00:00 [facility] HEPATITIS A 2006-03-13 Completed University of 00:00:00 [facility] HEPATITIS A 2006-03-13 Completed University of 00:00:00 [facility] Pneumococcal 7 2006-01-18 Completed University of Conjugate, PCV7 00:00:00 [place] [facility] ical (Prevnar7) Branch DTAP 2006-01-18 Completed University of 00:00:00 [facility] MMR 2006-01-18 Completed University of 00:00:00 [facility] Polio (IPV/OPV) 2006-01-18 Completed Universit y of 00:00:00 [facility] Pneumococcal 7 2006-01-18 Completed University of Conjugate, PCV7 00:00:00 [place] [facility] ical (Prevnar7) Branch DTAP 2006-01-18 Completed University of 00:00:00 [facility] MMR 2006-01-18 Completed University of 00:00:00 [facility] Polio (IPV/OPV) 2006-01-18 Completed Universit y of 00:00:00 [facility] Pneumococcal 7 2003-05-27 Completed University of Conjugate, PCV7 00:00:00 [place] [facility] ical (Prevnar7) Branch Varicella 2003-05-27 Completed University of (varivax)(chicken 00:00:00 [facility] edical pox) Branch Pneumococcal 7 2003-05-27 Completed University of Conjugate, PCV7 00:00:00 [place] [facility] ical (Prevnar7) Branch Varicella 2003-05-27 Completed University of (varivax)(chicken 00:00:00 [place] M edical pox) Branch Pneumococcal 7 2002-12-25 Completed University of Conjugate, PCV7 00:00:00 [place] [facility] ical (Prevnar7) Branch DTAP 2002-12-25 Completed University of 00:00:00 [facility] HIB 3 Dose Schedule 2002-12-25 Completed Unive rsity of 00:00:00 [facility] MMR 2002-12-25 Completed University of 00:00:00 [facility] Pneumococcal 7 2002-12-25 Completed University of Conjugate, PCV7 00:00:00 [place] [facility] ical (Prevnar7) Branch DTAP 2002-12-25 Completed University of 00:00:00 [facility] HIB 3 Dose Schedule 2002-12-25 Completed Unive rsity of 00:00:00 [facility] MMR 2002-12-25 Completed University of 00:00:00 [facility] Hep B, Adol or Pedi 2001 Completed Unive rsity of Dosage 00:00:00 [facility] Hep B, Adol or Pedi 2001 Completed Unive rsity of Dosage 00:00:00 [facility] Vital Signs Vital Name Observation Time Observation Value Comments Source Systolic blood 2021-09-05 16:26:00 119 mm[Hg] Univer sity of pressure [facility] Diastolic blood 2021-09-05 16:26:00 76 mm[Hg] Unive rsity of pressure [facility] Heart rate 2021-09-05 16:26:00 98 /min [facility] Body temperature 2021-09-05 16:26:00 36.06 Amy [facility] Respiratory rate 2021-09-05 16:26:00 16 /min [facility] Body height 2021-09-05 16:26:00 157.5 cm [facility] Body weight 2021-09-05 16:26:00 91.672 kg [facility] BMI 2021-09-05 16:26:00 36.96 kg/m2 [facility] Body mass index 2021-09-05 16:26:00 97.77 % Unive rsity of (BMI) [Percentile] [facility] Per age and sex Branch Procedures This patient has no known procedures. Encounters Start End Encounter Admission Attending Care Care Encounter Source Date/Time Date/Time Type Type Clinicians Facility Department ID 2022-06-05 2022-06-05 Outpatient [facility] [id number] Univers 09:30:00 09:30:00 ROSALIE [id number] stevo herrera [facility] 2022-06-05 2022-06-05 Outpatient R [facility] [id number] Univers 09:30:00 09:30:00 ROSALIE herrera [facility] 2021-09-08 2021-09-08 Telephone Diane [facility] [id number] [facility] 00:00:00 00:00:00 Rosalie C SHOVEL LOGGER [id number] ity of REGIONAL [id number] Pritesh as MATERNAL [id number] [facility] & CHILD [address] [place] [address] 2021-09-05 2021-09-05 Outpatient R [facility] [id number] Univers 10:00:00 10:00:00 ROSALIE ity o f [facility] 2021-09-05 2021-09-05 [facility] [id number] Univers 08:15:00 08:30:00 Visit Rosalie C SHOVEL LOGGER [id number] ity of REGIONAL [id number] Pritesh as MATERNAL [id number] [facility] & CHILD [address] [place] [address] 2020-12-02 2020-12-02 Routine [facility] [id number] 08:05:58 10:34:28 Rosalie C SHOVEL LOGGER [id number] Visit REGIONAL [id number] MATERNAL [id number] & CHILD [address] [place] [address] 2020-11-12 2020-11-12 Refill [facility] [id number] 00:00:00 00:00:00 Rosalie C SHOVEL LOGGER [id number] REGIONAL [id number] MATERNAL [id number] & CHILD [address] [place] [address] 2020-11-10 2020-11-10 [facility] [id number] 00:00:00 00:00:00 Rosalie C SHOVEL LOGGER [id number] REGIONAL [id number] MATERNAL [id number] & CHILD [address] [place] [address] 2020-11-04 2020-11-04 [facility] [id number] 10:53:45 11:52:04 Rosalie C SHOVEL LOGGER [id number] Visit REGIONAL [id number] MATERNAL [id number] & CHILD [address] [place] [address] - [place] Results This patient has no known results.
[2022-02-19 00:17] LABS: Urine Blood Negative (Negative); Urine Glucose Negative (Negative); Urine Protein Negative (Negative); Urine pH 7.5 (5.0-7.0)
[2022-02-19 00:39] LABS: Urine RBC <5 /HPF (None Seen)
[2022-02-19 00:40] LABS: Urine Bacteria <20 /HPF (<20)
[2022-02-19 01:26] LABS: Absolute Lymphocytes (CBC) 2.8 K/uL (0.7-4.9); Hematocrit 34.6 % (36.0-45.0); Lymphocytes % 28.6 % (15.3-44.8); MPV 7.1 fL (7.6-11.3)
[2022-02-19 01:57] LABS: Potassium 3.7 mmol/L (3.5-5.1)
[2022-02-19] MEDS ORDERED: NA CHLORIDE 0.9% 1,000 ML ONE (02:06)
--- NOTE | 2022-02-19 03:13 | EDPHYS ---
Physician Documentation [facility] Name: Jessie Mejia Age: 21 yrs Sex: Female : 2000 Arrival Date: 02/18/2022 Time: 23:11 Bed 20 Private MD: [place] Physician Chet Costa HPI: 02/19 01:05 This 21 yrs old Female presents to ER via Ambulatory with complaints of mh7 Abdominal Pain, Nausea. 01:05 The patient presents to the emergency department with abdominal pain, of the suprapubic mh7 area, that started yesterday, described as crampy, intermittent, nausea. The estimated gestational age is 6 weeks. 01:05 course: care: none. Previous pregnancies: in previous pregnancies mh7 patient has had. Associated signs and symptoms: Pertinent negatives: chest pain, diarrhea, dysuria, fever, frequency, ruptured membranes, seizure, shortness of breath, vaginal bleeding, vaginal discharge, vomiting. 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 - Social history:: Smoking status: Patient denies any tobacco usage or history of. ROS: 02/19 01:05 Constitutional: Negative for fever, chills, and weight loss, Eyes: Negative for injury, mh7 pain, redness, and discharge, ENT: Negative for injury, pain, and discharge, Neck: Negative for injury, pain, and swelling, Cardiovascular: Negative for chest pain, palpitations, and edema, Respiratory: Negative for shortness of breath, cough, wheezing, and pleuritic chest pain, Back: Negative for injury and pain, : Negative for injury, bleeding, discharge, and swelling, MS/Extremity: Negative for injury and deformity, Skin: Negative for injury, rash, and discoloration, Neuro: Negative for headache, weakness, numbness, tingling, and seizure, Psych: Negative for depression, anxiety, suicide ideation, homicidal ideation, and hallucinations, Allergy/Immunology: Negative for hives, rash, and allergies, Endocrine: Negative for neck swelling, polydipsia, polyuria, polyphagia, and marked weight changes, Hematologic/Lymphatic: Negative for swollen nodes, abnormal bleeding, and unusual bruising. Exam: 01:05 Constitutional: This is a well developed, well nourished patient who is awake, alert, mh7 and in no acute distress. Head/Face: Normocephalic, atraumatic. Eyes: Pupils equal round and reactive to light, extra-ocular motions intact. Lids and lashes normal. Conjunctiva and sclera are non-icteric and not injected. Cornea within normal limits. Periorbital areas with no swelling, redness, or edema. Neck: Trachea midline, no thyromegaly or masses palpated, and no cervical lymphadenopathy. Supple, full range of motion without nuchal rigidity, or vertebral point tenderness. No Meningismus. Chest/axilla: Normal chest wall appearance and motion. Nontender with no deformity. No lesions are appreciated. Cardiovascular: Regular rate and rhythm with a normal S1 and S2. No gallops, murmurs, or rubs. Normal PMI, no JVD. No pulse deficits. Respiratory: Lungs have equal breath sounds bilaterally, clear to auscultation and percussion. No rales, rhonchi or wheezes noted. No increased work of breathing, no retractions or nasal flaring. Abdomen/GI: Soft, non-tender, with normal bowel sounds. No distension or tympany. No guarding or rebound. No evidence of tenderness throughout. Back: No spinal tenderness. No costovertebral tenderness. Full range of motion. Skin: Warm, dry with normal turgor. Normal color with no rashes, no lesions, and no evidence of cellulitis. MS/ Extremity: Pulses equal, no cyanosis. Neurovascular intact. Full, normal range of motion. Neuro: Awake and alert, GCS 15, oriented to person, place, time, and situation. Cranial nerves II-XII grossly intact. Motor strength 5/5 in all extremities. Sensory grossly intact. Cerebellar exam normal. Normal gait. Psych: Awake, alert, with orientation to person, place and time. Behavior, mood, and affect are within normal limits. Vital Signs: 02/18 23:49 BP 107 / 86; Pulse 91; Resp 16 S; Temp 98.9; Pulse Ox 100% on R/A; Weight 95.25 kg (R); bb Height 5 ft. 2 in. (157.48 cm) (R); Pain /; 02/19 01:30 BP 125 / 48; Pulse 101; Resp 18 S; Pulse Ox 99% on R/A; as6 03:00 BP 106 / 75; Pulse 88; Resp 18 S; Pulse Ox 99% on R/A; as6 02/18 23:49 Body Mass Index 38.41 (95.25 kg, 157.48 cm) bb MDM: 03:10 Differential diagnosis: ectopic , UTI. Data reviewed: vital signs, nurses [facility] notes, lab test result(s), Beta HCG: CBC, electrolytes, urinalysis, radiologic studies, ultrasound. Data interpreted: Pulse oximetry: on room air is 100 %. Interpretation: normal. Counseling: I had a detailed discussion with the patient and/or guardian regarding: the historical points, exam findings, and any diagnostic results supporting the discharge/admit diagnosis, lab results, radiology results, the need for outpatient follow up, an OB/Gyne specialist, to return to the emergency department if symptoms worsen or persist or if there are any questions or concerns that arise at home. Response to treatment: the patient's symptoms have resolved after treatment, the patient's blood pressure is in an acceptable range, mental status has returned to baseline, the patient no longer shows bradycardia, the patient is not short of breath, the patient is not tachycardic, the patient's pain is gone, the patient's temperature has normalized, the patient is now symptom free, patient is well hydrated. 03:12 Patient medically screened. [facility] 02/18 23:21 Order name: Urine Culture [facility] 02/18 23:21 Order name: Urine Microscopic Only; Complete Time: 00:50 snw 02/19 00:17 Order name: Urine --Ancillary (enter results); Complete Time: 00:50 mw2 02/19 00:17 Order name: Urine Dipstick-Ancillary; Complete Time: 00:50 EDMS 02/19 00:52 Order name: Abo/rh Typing; Complete Time: 03:03 02/19 00:52 Order name: Basic Metabolic Panel; Complete Time: 03:03 02/18 23:21 Order name: Urine Dipstick-Ancillary (obtain specimen); Complete Time: 00:16 snw 02/19 00:52 Order name: CBC with Diff; Complete Time: 01:33 02/19 00:52 Order name: Quantitative Hcg; Complete Time: 03:03 02/19 01:09 Order name: US Transvaginal Ob 02/18 23:21 Order name: Urine Test (obtain specimen); Complete Time: 00:16 snw 02/19 00:52 Order name: IV Saline Lock; Complete Time: 01:15 02/19 00:52 Order name: Labs collected and sent; Complete Time: 01:15 02/19 00:52 Order name: NPO; Complete Time: 01:15 Administered Medications: 02:00 Drug: NS 0.9% 1000 ml Route: IV; Rate: 1000 ml; Site: right antecubital; as6 03:49 Follow up: Response: No adverse reaction; IV Status: Infusion continued; IV Intake: as6 1000ml 02:00 Not Given (Patient Refused): morphine 2 mg IVP once over 4 mins as6 02:00 Not Given (Patient Refused): Zofran (Ondansetron) 4 mg IVP once; over 2 minutes as6 03:40 Drug: Macrobid (nitrofurantoin) 100 mg Route: PO; as6 03:49 Follow up: Response: No adverse reaction as6 Disposition Summary: 02/19/22 03:12 Discharge Ordered Location: Home [facility] Problem: new [facility] Symptoms: have improved [facility] Condition: Stable [facility] Diagnosis - UTI/ Urinary tract infection, site not specified 7 - Less than 8 weeks gestation of [facility] Followup: [facility] - With: Private Physician - When: 1 - 2 days - Reason: Worsening of condition, Recheck today's complaints, Continuance of care, Re-evaluation by your physician Followup: [facility] - With: Kei Easton MD - When: 1 - 2 days - Reason: Worsening of condition, Recheck today's complaints Discharge Instructions: - Discharge Summary Sheet [facility] - Abdominal Pain During mh7 - Urinary Tract Infection, Adult, [id number] [facility] Forms: - Medication Reconciliation Form 7 - Thank You Letter mh7 - Antibiotic Education 7 - Prescription Opioid Use [facility] Prescriptions: - Macrobid 100 mg Oral Capsule - take 1 capsule by ORAL route every 12 hours for 7 days; 14 capsule; Refills: 0, mh7 Product Selection Permitted Signatures: Dispatcher [employer] EDMahi Naranjo, KIMI-C CLINICAL LABORATORY TECHNOLOGIST-Csnw Tyra Sauceda RN RN bb Chet Costa MD MD mh7 Harvey Kong RN RN as6 Corrections: (The following items were deleted from the chart) 01:36 01:34 The patient presents to the emergency department with abdominal pain, of the mh7 suprapubic area, that started mh7
--- NOTE | 2022-02-19 03:13 | ER ---
Nurse's Notes [facility] Name: Jessie Mejia Age: 21 yrs Sex: Female : 2000 Arrival Date: 02/18/2022 Time: 23:11 Bed 20 Private MD: Diagnosis: UTI/ Urinary tract infection, site not specified;Less than 8 weeks gestation of Presentation: 02/18 23:49 Chief complaint: Patient states: she is about 6 weeks and started cramping bb today but no bleeding and wants to get checked out. Coronavirus screen: At this time, the client does not indicate any symptoms associated with coronavirus-19. Ebola Screen: No symptoms or risks identified at this time. Initial Sepsis Screen: Does the patient meet any 2 criteria? No. Patient's initial sepsis screen is negative. Does the patient have a suspected source of infection? No. Patient's initial sepsis screen is negative. Risk Assessment: Do you want to hurt yourself or someone else? Patient reports no desire to harm self or others. Onset of symptoms was February 18, 2022. 23:49 Method Of Arrival: Ambulatory bb 23:49 Acuity: CONNIE 3 bb Triage Assessment: 02/19 03:48 General: Behavior is calm, cooperative. 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 - Social history:: Smoking status: Patient denies any tobacco usage or history of. Screenin/08 03:48 Abuse screen: Denies threats or abuse. Denies injuries from another. Nutritional as6 screening: No deficits noted. Tuberculosis screening: No symptoms or risk factors identified. Fall Risk None identified. Assessment: 00:00 General: Appears in no apparent distress. Pain: Complains of pain in suprapubic area as6 Quality of pain is described as crampy. Neuro: Level of Consciousness is awake, alert. Respiratory: Respiratory effort is even, unlabored. GI: Reports lower abdominal pain. Vital Signs: 02/18 23:49 BP 107 / 86; Pulse 91; Resp 16 S; Temp 98.9; Pulse Ox 100% on R/A; Weight 95.25 kg (R); bb Height 5 ft. 2 in. (157.48 cm) (R); Pain 6; 02/19 01:30 BP 125 / 48; Pulse 101; Resp 18 S; Pulse Ox 99% on R/A; as6 03:00 BP 106 / 75; Pulse 88; Resp 18 S; Pulse Ox 99% on R/A; as6 02/18 23:49 Body Mass Index 38.41 (95.25 kg, 157.48 cm) bb ED Course: 02/18 23:11 Patient arrived in ED. as 23:50 Triage completed. bb 23:51 Arm band placed on Patient placed in waiting room, Patient notified of wait time. bb Family accompanied patient. 02/19 00:36 Chet Costa MD is Attending Physician. 7 00:55 Harvey Kong, ALEJANDRO is Primary Nurse. as6 01:10 Inserted saline lock: 20 gauge in right antecubital area, using aseptic technique. as6 Blood collected. 01:15 Abo/rh Typing Sent. as6 01:15 Basic Metabolic Panel Sent. as6 01:15 CBC with Diff Sent. as6 01:15 Quantitative Hcg Sent. as6 01:50 US Transvaginal Ob In Process Unspecified. EDMS 03:12 Kei Easton MD is Referral Physician. 7 03:48 Placed in gown. Bed in low position. Call light in reach. Side rails up X2. as6 03:48 No provider procedures requiring assistance completed. IV discontinued, intact, as6 bleeding controlled, No redness/swelling at site. Pressure dressing applied. Administered Medications: 02:00 Drug: NS 0.9% 1000 ml Route: IV; Rate: 1000 ml; Site: right antecubital; as6 03:49 Follow up: Response: No adverse reaction; IV Status: Infusion continued; IV Intake: as6 1000ml 02:00 Not Given (Patient Refused): morphine 2 mg IVP once over 4 mins as6 02:00 Not Given (Patient Refused): Zofran (Ondansetron) 4 mg IVP once; over 2 minutes as6 03:40 Drug: Macrobid (nitrofurantoin) 100 mg Route: PO; as6 03:49 Follow up: Response: No adverse reaction as6 Medication: 03:49 VIS not applicable for this client. as6 Intake: 03:49 IV: 1000ml; Total: 1000ml. as6 Outcome: 03:12 Discharge ordered by . connie 03:49 Discharged to home ambulatory, with family. as6 03:49 Condition: stable 03:49 Discharge instructions given to patient, Instructed on discharge instructions, follow up and referral plans. medication usage, Demonstrated understanding of instructions, follow-up care, medications, Prescriptions given X 1. 03:49 Patient left the ED. as6 Signatures: Dispatcher [employer] EDMS Shaila Iverson Brenda, RN RN bb Holmes, Maurice, MD MD [facility] Harvey Kong RN RN as6
[2022-02-19] MEDS ORDERED: NITROFURAN MACRO 100 MG CAP PO ONE (03:47)
[2022-02-19 04:36] VITALS: TEMP 98.9
[2022-02-19 04:44] VITALS: O2SAT 99
[2022-02-19 04:55] VITALS: BP 106/75
--- NOTE | 2022-02-19 14:30 | RAD REPORT ---
EXAM DESCRIPTION: US - Transvaginal OB - 02/19/2022 3:19 am CLINICAL HISTORY: 21 years Female ABD CRAMPING, , LMP: 01/13/2022, EGA: 5 weeks 2 days, MARIBETH: TECHNIQUE: Sonographic imaging of the pelvis was performed transvaginally on 02/19/2022 at 1: 34 AM COMPARISON: No prior studies were available for comparison. FINDINGS: The uterus is normal in size and configuration and measures: 9.0 x 5.1 x 6.1 cm. There is a normal appearing intrauterine gestational sac. The average sac diameter measures 0.75 cm c orresponding to a gestational age of 5 weeks, 3 days. There is no evidence of a yolk sac or hood e at this time. The right ovary is grossly normal in size, shape and echogenicity and measures: 3.2 x 2.3 x 2.7 cm. There is normal pulsed and color Doppler flow to the right ovary. There are no right adnexal mass lesions.. The left ovary is grossly normal in size, shape and echogenicity and measures: 2.9 x 1.5 x 2.2 cm. There is normal pulsed and color Doppler flow to the left ovary. There are no left adnexal mass lesions.. There is no free fluid in the pelvis. IMPRESSION: 1. Single living intrauterine with an estimated ultrasound age of 5 weeks, 3 d ays corresponding to an estimated due date of 10/19/2022 This corresponds to within 1 day of the expect ed clinical gestational age. 2. Grossly normal sonographic evaluation of the ovaries. 3. No immediate complications are identified at this time. Electronically signed by: Fartun Bose DO 02/19/2022 2:59 AM CDT Due to temporary technical issues with the PACS/Fluency reporting system, reports are being signed by the in house radiologists without review as a courtesy to insure prompt reporting. The interpreting radiologist is fully responsible for the content of the report.
== END 2022-02-19 03:49 | disposition home or self-care (01) ==
LOC: ER 23:08
DX: O23.41 Unspecified infection of urinary tract in pregnancy, first trimester (principal); N39.0 Urinary tract infection, site not specified; Z3A.01 Less than 8 weeks gestation of pregnancy
CPT/HCPCS: 87088; 85025; 87086; 80048; 36415; 86900; 81025; 86901; 84702; 76817; J7030; 81003; 81015; 96360; 96361; 99284